=== PATIENT | male | born 1975 | race Caucasian/White ===

== ENCOUNTER 2017-05-10 13:28 | Inpatient (IN) | payer OTHER ==
[~2017-05-10] VITALS: Ht 177.8 cm; Wt 114.5 kg
[2017-05-10] MEDS ORDERED: ZOLOFT25 MG PO (13:39)
[2017-05-10] MEDS ORDERED: SEROQUEL12.5 MG PO (13:39)
[2017-05-10] MEDS ORDERED: GABAPENTIN100 MG PO (13:40)
[2017-05-10 14:21] LABS: HEMATOCRIT 44.2 % (38.0-50.0); MCH 31.3 PG (29.0-34.0); MCHC 34.2 G/DL (30.0-36.0); MCV 91.7 FL (86-99); MEAN PLAT.VOLUME 9.2 uM^3 (9.0-12.4); PLATELET COUNT 247 K/uL (156-360); RBC DIS.WIDTH-CV 13.2 % (11.8-14.6); RBC DIS.WIDTH-SD 44.4 % (39-53); RED BLOOD COUNT 4.82 M/uL (4.00-5.50); WHITE BLOOD COUNT 12.4 K/uL (4.1-10.2)
[2017-05-10 14:33] LABS: CHLORIDE 112 mEq/L (99-109); POTASSIUM 4.5 mEq/L (3.7-5.4); SODIUM 146 mEq/L (136-147)
[2017-05-10 14:34] LABS: GLUCOSE 79 mg/dL (70-99)
[2017-05-10 14:36] LABS: ANION GAP 13 MEQ/L (2-14)
[2017-05-10 14:37] LABS: SERUM ETHYL ALCOHOL 253 mg/dL
[2017-05-10 14:39] LABS: GFR ESTIMATE (CALCULATED) > 59 mL/min/; UREA NITROGEN (BUN) 8 mg/dL (9-23)
[2017-05-10 19:12] LABS: AMPHETAMINE NEGATIVE (500 ng/mL); BARBITURATES NEGATIVE (200 ng/mL); BENZODIAZEPINES PRESUMPTIVE POSITIVE (150 ng/mL); COCAINE PRESUMPTIVE POSITIVE (150 ng/mL); INTERNAL CONTROLS VALID? YES; METHADONE NEGATIVE (200 ng/mL); METHAMPHETAMINE NEGATIVE (500 ng/mL); OPIATES (MORPHINE) NEGATIVE (100 ng/mL); OXYCODONE NEGATIVE (100 ng/mL); PHENCYCLIDINE NEGATIVE (25 ng/mL); PROPOXYPHENE NEGATIVE (300 ng/mL); THC CANNABINOIDS NEGATIVE (50 ng/mL); TRICYCLIC ANTIDEPRESSANTS PRESUMPTIVE POSITIVE (300 ng/mL)
[2017-05-10 19:13] LABS: ADD MEDTOX COMMENT Y
[2017-05-10 19:29] LABS: BENZODIAZEPINES QUANT VALUE 0 NG/ML; BENZODIAZEPINES, URINE SCREEN Negative (200 ng/mL)
[2017-05-10 21:51] VITALS: BP 134/73
[2017-05-10] MEDS ORDERED: SEROQUEL XR400 MG PO (22:26)
[2017-05-10] MEDS ORDERED: NAPROXEN250 MG PO (22:28)
[2017-05-11 07:39] VITALS: BP 112/61
[2017-05-11 16:08] VITALS: BP 123/68
[2017-05-12 07:59] VITALS: BP 106/56
[2017-05-12 15:43] VITALS: BP 86/44
[2017-05-13 07:36] VITALS: BP 99/58
[2017-05-13 15:32] VITALS: BP 83/47
[2017-05-14 06:57] VITALS: BP 96/53
[2017-05-14] MEDS ORDERED: QUETIAPINE FUMA50 MG PO (09:11)
[2017-05-14] MEDS ORDERED: Thiamine,Vitamin B1 PO (09:11)
[2017-05-14] MEDS ORDERED: SERTRALINE HCL50 MG PO (09:11)
[2017-05-14] MEDS ORDERED: THERAGRAN1 TABLET PO (09:11)
[2017-05-14] MEDS ORDERED: QUETIAPINE FUM400 MG PO (09:11)
[2017-05-14] MEDS ORDERED: FOLIC ACID1 MG PO (09:11)
[2017-05-14] MEDS ORDERED: GABAPENTIN300 MG PO (09:11)
== END 2017-05-14 12:54 | DRG 885 ==
LOC: EME 13:28 → 1WEST 21:11 → EDOF 21:11 → ENRESERV 21:42 → 1WEST 21:46
PROVIDERS: Emergency Medicine
DX: F33.3 Major depressive disorder, recurrent, severe with psychotic symptoms (principal); R45.851 Suicidal ideations; F10.239 Alcohol dependence with withdrawal, unspecified; F11.23 Opioid dependence with withdrawal; F14.90 Cocaine use, unspecified, uncomplicated; F17.200 Nicotine dependence, unspecified, uncomplicated; F41.9 Anxiety disorder, unspecified; B19.20 Unspecified viral hepatitis C without hepatic coma; Z59.0 Homelessness
CPT/HCPCS: 71020; 80048; 84999; 85027; 90839; 97150 GO; 97165 GO; 99281; 99285; G0480; Q0169; Q0177